=== PATIENT | male | born 1990 | race Two or more races ===

== ENCOUNTER 2024-12-19 10:45 | Day surgery (SDC) | payer MEDICAID ==
[2024-12-12 11:33] LABS: Urine Bacteria None Seen /hpf (None Seen)
[2024-12-12 12:04] LABS: Basophils # (auto) 0.1 10 ^3/uL (0-0.2); Basophils % (auto) 0.9 % (0.0-2.0); Eosinophils # (auto) 0.1 10 ^3/uL (0-0.8); Hematocrit 47.1 % (41.0-53.0); Lymphocytes # (auto) 2.5 10 ^3/uL (0.4-5.4); Lymphocytes % (auto) 37.5 % (10.0-50.0); Mean Corpuscular Hemoglobin 28.4 pg (28.0-32.0); Mean Corpuscular Hgb Conc. 34.1 g/dL (32.0-36.0); Mean Corpuscular Volume 83.4 fL (80.0-100.0); Monocytes # (auto) 0.6 10 ^3/uL (0-1.3); Monocytes % (auto) 9.5 % (0.0-12.0); Neutrophils # (auto) 3.4 10 ^3/uL (1.6-8.6); Neutrophils % (auto) 50.1 % (37.0-80.0); Platelet Count (auto) 315 10^3/uL (140-450); Red Blood Cells 5.65 10^6/uL (4.5-5.90); Red Cell Distribution Width 13.1 % (11.8-14.3); White Blood Cell 6.7 10^3/uL (4.4-10.8)
[2024-12-12 12:24] LABS: Urine Blood Negative /uL (Negative); Urine Clarity Clear (Clear); Urine Color Light-Yellow (Yellow); Urine Protein, UAD Negative (Negative); Urine Specific Gravity 1.017 (1.001-1.035); Urine Squamous Epithelial Cell None Seen /hpf (<5); Urine Urobilinogen Normal (Negative); Urine WBC < 1 /HPF (0-3); Urine pH 5.5 (5.0-9.0)
[2024-12-12 12:30] LABS: INR 0.98 (0.9-1.15); Partial Thromboplastin Time 27.4 SEC (24.5-34.5); Prothrombin Time 10.4 sec (9.3-11.8)
[2024-12-12 12:40] LABS: Alanine Aminotransferase 51 U/L (7-40); Albumin 5.1 g/dL (3.2-4.8); Alkaline Phosphatase 87 U/L (46-116); Anion Gap 9 (5-15); Aspartate Aminotransferase 22 U/L (13-40); BUN/Creatinine Ratio 13.4 (10.0-20.0); Bilirubin, Total 0.5 mg/dL (0.2-1.0); Blood Urea Nitrogen 11 mg/dL (9-23); Calcium 10.5 mg/dL (8.7-10.4); Carbon Dioxide 25 mmol/L (20-31); Chloride 104 mmol/L (98-107); Glucose 96 mg/dL (74-106); Potassium 4.1 mmol/L (3.5-5.1); Sodium 138 mmol/L (136-145); Total Protein 7.6 g/dL (5.7-8.2)
[~2024-12-19] VITALS: Ht 185.4 cm; Wt 171.0 kg
[~2024-12-19 10:45] MED LIST: LISI2.5T47 PO
[2024-12-19] MEDS ORDERED: ceFAZolin 2 GM/D5W100ml 100 ML IV ONE (11:09)
[2024-12-19] MEDS ORDERED: KETOROLAC TROMETH 30 MG/ML 1ML VIAL ONE (12:01)
[2024-12-19] MEDS ORDERED: ONDANSETRON HCL 4 MG/2 ML VIAL ONE (12:01)
[2024-12-19] MEDS ORDERED: LIDOCAINE 1% INJ PF 5ML AMP ONE (12:01)
[2024-12-19] MEDS ORDERED: DexAMETHasone SOD PHOS 10MG/1ML VIAL INJ ONE (12:01)
[2024-12-19] MEDS ORDERED: GLYCOPYRROLATE 0.2 MG/ML 1ML VIAL ONE (12:02)
[2024-12-19] MEDS ORDERED: KETAMINE 50mg/ML 1ml syringe ONE (12:02)
[2024-12-19] MEDS ORDERED: PROPOFOL 10 MG/ML 20 ML IV ONE ×2 (12:02→12:57)
[2024-12-19] MEDS ORDERED: ceFAZolin 1GM VL ONE (12:41)
[2024-12-19 13:03] VITALS: TEMP 98.2; O2SAT 100
--- NOTE | 2024-12-19 13:06 | DVHOP2 ---
Operative Report - 2 Report Details Date: 12/19/24 Preop Diagnosis: 1. Bilateral soft tissue mass 2. Bilateral foot pain Postop Diagnosis: Bilateral foot warts Surgeon: Eileen Greene MD Anesthesiologist: See anesthesia Anesthesia: Mac Consent: The patient was informed of the risks and benefits of the procedure. These in clude but are not limited to complications of anesthesia, postoperative infection, incomplete relief of symptoms, recurrence of symptoms, damage to blood vessels, nerves and tendons, deep venous thrombosis, pulmonary embolism and possible need for repeat surgery in the future. Complications: None Estimated Blood Loss: Minimal Fluids: See anesthesia Findings: Consistent with diagnosis Indications for Surgery: Worsening bilateral foot mass Name of Procedure Performed 1. Right foot mass excision (78534) 2. Left foot mass excision (96925) Procedure Details Procedure Details: PRE-PROCEDURE INFORMATION: In the pre-op holding area, the extremity to be operated on was clearly marked and the patient verified correct laterality of the marking. The patient was transferred to the OR table and placed in a supine position. A timeout was performed in which identification of the correct patient, procedure, location, and materials was done. The bilateral foot and leg were prepped and draped in normal sterile fashion. DESCRIPTION OF PROCEDURE: Attention was directed to the right plantar foot where the mass was located. Using a #15 blade, an incision was made around the circumference of the mass. The incision was deepened to the level of the fascia. Care was taken throughout the dissection the remaining neurovascular and tendinous structures. Using a sharp curette, the mass was excised in its entirety. A Bovie was then used to cauterize the area to prevent it from returning. The area was then dressed with Xeroform, gauze, ABD, Chaim. The patient was placed in a postop shoe Attention was directed to the left plantar foot where the mass was located. Using a #15 blade, an incision was made around the circumference of the mass. The incision was deepened to the level of the fascia. Care was taken throughout the dissection the remaining neurovascular and tendinous structures. Using a sharp curette, the mass was excised in its entirety. A Bovie was then used to cauterize the area to prevent it from returning. The area was then dressed with Xeroform, gauze, ABD, Chaim. The patient was placed in a postop shoe POSTOPERATIVE INFORMATION: The patient tolerated the above noted procedure and anesthesia well and was transferred to the PACU with vital signs stable, and vascular status intact with capillary refill intact to all digits. Postoperative instructions reviewed in detail with the patient with written instructions provided. Patient will return to clinic in approximately 10-14 days for first postoperative visit. Patient has the number of the clinic and was instructed to call prior to that time should any problems, questions, or concerns arise. Condition Good Disposition Home EILEEN GREENE DPM Dec 19, 2024 13:06
[2024-12-19] MEDS ORDERED: fentaNYL CITRATE 100 MCG/2 ML VL IV PRN (13:15)
[2024-12-19] MEDS ORDERED: oxyCODONE HCL 5MG TAB PO PRN (13:15)
[2024-12-19] MEDS ORDERED: HYDROmorphone HCL 2 MG/ML VL/or syr IV PRN (13:15)
[2024-12-19] MEDS ORDERED: FLUMAZENIL 0.1 MG/ML INJ 10ML MDV IV PRN (13:15)
[2024-12-19] MEDS ORDERED: ePHEDrine SULFATE 50 MG/ML AMP IV PRN (13:15)
[2024-12-19] MEDS ORDERED: NALOXONE HCL 0.4 MG/ML VIAL IV PRN (13:15)
[2024-12-19] MEDS ORDERED: hydrALAZINE HCL 20 MG/ML VL IV PRN (13:15)
[2024-12-19] MEDS ORDERED: ONDANSETRON HCL 4 MG/2 ML VIAL IV PRN (13:15)
[2024-12-19] MEDS: BUPIVACAINE 0.5% P/F INJ 10 ML VIAL ONE (13:22)
[2024-12-19 13:25] VITALS: BP 114/66; PULSE 59; RESP 20; O2SAT 95
== END 2024-12-19 13:35 | disposition home or self-care (01) ==
LOC: SUR 10:45
PROVIDERS: ATTEND Podiatrist
DX: R22.43 Localized swelling, mass and lump, lower limb, bilateral (principal); B07.0 Plantar wart; M79.671 Pain in right foot; M79.672 Pain in left foot
CPT/HCPCS: 28043; 36415; 80053; 81001; 85025; 85610; 85730; J0690; J1100; J1885; J2405; J2704; J3490